=== PATIENT | male | born 1970 ===

== ENCOUNTER 2018-11-02 05:54 | Day surgery (SDC) | payer BC ==
[2018-10-31 08:38] VITALS: BMI 26.3
[2018-11-02 06:58] LABS: PARTIAL THROMBOPLASTIN TIME 32.5 Seconds (25.6-37.1)
[2018-11-02] MEDS: Lactated Ringer's 1,000 ML IV ONE ×2 (06:59→09:07)
[2018-11-02] MEDS ORDERED: Propofol 10 mg/ml Inj (20 ML) ONE (07:05)
[2018-11-02] MEDS ORDERED: Midazolam 2 MG/2 ML VIAL ONE (08:45)
[2018-11-02] MEDS ORDERED: Etomidate 20 mg/10ml Inj IV ONE (08:48)
[2018-11-02] MEDS: cefTRIAXone (Rocephin) 1 gm Inj ONE (08:50)
[2018-11-02] MEDS ORDERED: Dexamethasone 4 mg/1 ml ONE (08:55)
[2018-11-02] MEDS: Bupivacaine HCl 0.5% PF (30 ml) Inj ONE (08:55)
[2018-11-02] MEDS ORDERED: Lactated Ringer's 1,000 ML IV SCH (10:00)
[2018-11-02] MEDS: HYDROmorphone 0.5 mg/0.5 ml ISec IVP PRN (10:15)
[2018-11-02 13:11] VITALS: RESP 18; O2SAT 96
[2018-11-02 16:08] VITALS: BP 146/86; PULSE 88; TEMP 98.3
--- NOTE | 2018-11-02 20:51 | CARD ---
APPROVED REPORT Date of service: 11/02/2018 EKG Measurement Heart [id number] CO [id number] <Conclusion> Normal sinus rhythm Normal ECG
--- NOTE | 2018-11-02 21:03 | OP ---
PROCEDURE DATE: 11/02/2018 PREOPERATIVE DIAGNOSIS: Phimosis. POSTOPERATIVE DIAGNOSIS: Phimosis. PROCEDURE PERFORMED: Circumcision. DESCRIPTION OF PROCEDURE: Under general anesthesia, the patient was placed on the operating table in a supine position. The area of the groin was draped and prepped in a sterile manner. I made circumferential incisions around the redundant foreskin, removed the excess foreskin, and cauterized active bleeders. Inserted 10 mL of lidocaine at the base of penis for local anesthetic affect. At the end of the procedure after multiple interrupted chromic sutures 4-0 were used to reapproximate the skin edges, I placed a compressive Coban dressing over the wound site. The patient then was taken from the operating room in good condition. Faviola Kenyon MD
== END 2018-11-02 15:30 | disposition home or self-care (01) ==
LOC: H.OPSURG 05:54
PROVIDERS: ATTEND Urology
DX: N47.1 Phimosis (principal)
CPT/HCPCS: 36415; 54161; 82948; 85610; 85730; 88304; 93005; J0696; J1100; J1170; J1885; J2001; J2250; J2405; J2704; J2765; J3010; J7120